=== PATIENT | male | born 1995 | race Two or more races ===

== ENCOUNTER 2018-04-27 22:33 | Emergency (ER) | payer SELFPAY ==
[~2018-04-27] VITALS: Ht 188 cm; Wt 96.7 kg
[2018-04-27] MEDS ORDERED: PRED50TA PO (22:40)
[2018-04-27] MEDS ORDERED: FURO40TA6 PO (22:40)
[2018-04-27] MEDS ORDERED: SPIR50TA4 PO (22:40)
[2018-04-27] MEDS ORDERED: MIRT30TA4 PO (22:40)
--- NOTE | 2018-04-27 22:43 | NUR ---
PT AWARE TO REMAIN NPO
--- NOTE | 2018-04-27 23:18 | NUR ---
PT AMBULATE WITH STEADY GAIT TO ROOM AT THIS TIME. HAS HAD NO VOMITING SINCE ARRIVAL TO ED
--- NOTE | 2018-04-27 23:41 | NUR ---
PT TO XRAY
[2018-04-28] MEDS ORDERED: SODIUM CHLORIDE FLUSH 10ML SYR IVF ONE
--- NOTE | 2018-04-28 00:17 | NUR ---
PT BACK FROM US. PROVIDED WITH WARM BLANKETS. LAB AT BEDSIDE. IV ESTABLISHED IN RIGHT FOREARM.
[2018-04-28] MEDS ORDERED: HYDROmorphone 1 MG/ML, 1ML ONE ×2 (00:21→03:04)
[2018-04-28 00:29] LABS: BASOPHILS # (AUTO) 0.08 x10^3/uL (0-0.1); BASOPHILS % (AUTO) 1 % (0-1); EOSINOPHILS # (AUTO) 0.09 x10^3/uL (0-0.4); EOSINOPHILS % (AUTO) 1 % (1-7); LYMPHOCYTES % (AUTO) 19 % (22-44); MD NO; MEAN CORPUSCULAR HEMOGLOBIN 28.7 pg (27.5-34.5); MEAN CORPUSCULAR HGB CONC 32.7 g/dL (33.2-36.2); MEAN CORPUSCULAR VOLUME 87.9 fL (81-97); MEAN PLATELET VOLUME 8.1 fL (7.4-10.4); MONOCYTES # (AUTO) 0.52 x10^3/uL (0.2-0.8); MONOCYTES % (AUTO) 7 % (2-9); NEUTROPHILS # (AUTO) 5.44 x10^3/uL (1.8-6.8); NEUTROPHILS % (AUTO) 72 % (42-75); PLATELET COUNT 164 x10^3/uL (130-400); RED BLOOD COUNT 3.41 x10^6/uL (4.38-5.82); RED CELL DISTRIBUTION WIDTH 21.1 % (9.4-14.8)
[2018-04-28 00:39] LABS: ALANINE AMINOTRANSFERASE 148 U/L (12-78); ALBUMIN 2.4 g/dL (3.4-5.0); ANION GAP 6 mmol/L (5-15); CALCIUM 7.6 mg/dL (8.5-10.1); CHLORIDE 108 mmol/L (98-107); INTERNATIONAL NORMALIZED RATIO 1.55 (0.93-1.1); PROTHROMBIN TIME 16.2 Seconds (9.6-11.5)
[2018-04-28 00:42] LABS: ALKALINE PHOSPHATASE 230 U/L (45-117); TOTAL PROTEIN 5.7 g/dL (6.4-8.2)
--- NOTE | 2018-04-28 01:43 | NUR ---
PT GIVEN URINAL, SET UP FOR PARACENTESIS
[2018-04-28] MEDS ORDERED: LIDOCAINE-MPF 1%, 5ML ONE (01:54)
[2018-04-28] MEDS ORDERED: LIDOCAINE 1%, 10ML INFIL ONE (02:00)
--- NOTE | 2018-04-28 02:04 | NUR ---
DR. HUYNH AT BEDSIDE PERFORMING PARACENTESIS
[2018-04-28 02:20] LABS: CULTURE INDICATED? YES; MICROSCOPIC INDICATED
--- NOTE | 2018-04-28 02:23 | NUR ---
8 L OF FLUID DRAWN OFF PT'S ABD
[2018-04-28] MEDS ORDERED: PROCHLORPERAZINE 5 MG/ML, 2ML ONE (02:54)
--- NOTE | 2018-04-28 02:58 | NUR ---
PT MEDICATED PER EMAR FOR NAUSEA, 5 RIGHTS ADDRESSED.
[2018-04-28] MEDS ORDERED: PROCHLORPERAZINE 5 MG/ML, 2ML IVPush ONE (03:00)
--- NOTE | 2018-04-28 03:06 | NUR ---
PT MEDICATED PER EMAR FOR PAIN. 5 RIGHTS ADDRESSED.
[2018-04-28] MEDS ORDERED: HYDROmorphone 1 MG/ML, 1ML IV ONE ×2 (03:30)
--- NOTE | 2018-04-28 04:36 | NUR ---
PT SLEEPING, BREATHING EVEN/NONLABORED, NO DISTRESS NOTED
--- NOTE | 2018-04-28 06:01 | NUR ---
PT CONTINUES TO SLEEP. AWAITING LABS AT THIS TIME. RESPRIATIONS EVEN AND UNLABORED. ALL VITALS STABLE. WILL CONTINUE TO MONITOR.
--- NOTE | 2018-04-28 06:32 | NUR ---
PT CONTINUES TO SLEE. RESPIRATIONS EVEN AND UNLABORED. AWAITING LABS AT THIS TIME. WILL CONTINUE TO MONITOR.
[2018-04-28 06:33] VITALS: BP 105/57
--- NOTE | 2018-04-28 06:59 | NUR ---
IV REMOVED AND GIVEN DISCHARGE PAPER AND INSTRUCTIONS.PT GETTING DRESSED AND GIVEN A [facility]OU[facility]
== END 2018-04-28 07:02 | disposition home or self-care (01) ==
LOC: ED 23:59
DX: K75.4 Autoimmune hepatitis (principal); K70.11 Alcoholic hepatitis with ascites; Z88.6 Allergy status to analgesic agent; Z88.8 Allergy status to other drugs, medicaments and biological substances
CPT/HCPCS: 36415; 49083; 73060; 76700; 80053; 81001; 82945; 83615; 83690; 84157; 85025; 85610; 85730; 87070; 87086; 87205; 89051; 96374; 96375; 96376; 99285; J0780; J1170